=== PATIENT | female | born 1990 | race Caucasian/White ===

== ENCOUNTER 2017-01-16 05:30 | Day surgery (SDC) | payer OTHER ==
[~2017-01-16] VITALS: Ht 161.3 cm; Wt 67.8 kg
[2017-01-16 06:14] LABS: HEMATOCRIT 39.7 % (36.0-46.0); MCH 29.6 PG (29.0-34.0); MCHC 33.2 G/DL (30.0-36.0); MEAN PLAT.VOLUME 10.1 uM^3 (9.5-12.4); PLATELET COUNT 194 K/uL (156-360); RBC DIS.WIDTH-CV 12.1 % (11.8-14.6); RBC DIS.WIDTH-SD 39.7 % (39-53); RED BLOOD COUNT 4.46 M/uL (3.80-5.20); WHITE BLOOD COUNT 17.6 K/uL (4.1-10.2)
[2017-01-16 06:26] LABS: CHLORIDE 102 mEq/L (99-109); POTASSIUM 3.6 mEq/L (3.7-5.4); SODIUM 133 mEq/L (136-147)
[2017-01-16 06:28] LABS: GLUCOSE 118 mg/dL (70-99)
[2017-01-16 06:30] LABS: ANION GAP 11 MEQ/L (2-14); TOTAL BILIRUBIN 0.7 mg/dL (0.0-1.0)
[2017-01-16 06:32] LABS: ALKALINE PHOSPHATASE 43 IU/L (3-129); GFR ESTIMATE (CALCULATED) > 59 mL/min/
[2017-01-16 06:33] LABS: UREA NITROGEN (BUN) 12 mg/dL (9-23)
[2017-01-16 06:33] LABS: ADD MIUA? YES; BILIRUBIN NEGATIVE; BLOOD MODERATE; COLOR YELLOW ((YELLOW)); GLUCOSE (STRIP) NEGATIVE; KETONES NEGATIVE; LEUKOCYTES NEGATIVE; NITRITE NEGATIVE; PROTEIN (STRIP) 30; SPECIFIC GRAVITY 1.032 (1.000-1.030); UROBILINOGEN 0.2 MG/DL (0.2-1.0)
[2017-01-16 06:57] LABS: LIPASE 20 U/L (1.0-51.0); QUANTITATIVE HCG < 4.0 MIU/ML
[2017-01-16 07:26] LABS: BACTERIA 3+ /HPF; CASTS NONE SEEN /LPF; CRYSTALS NONE SEEN; EPITHELIAL CELLS RARE /HPF; MUCUS NONE SEEN /LPF; UCUL ADDED? YES; WHITE BLOOD CELLS 0-5 /HPF (0-5)
[2017-01-16] MEDS ORDERED: OXAYDO5 MG PO (11:15)
[2017-01-16 12:38] VITALS: BP 118/59
[2017-01-16 15:45] VITALS: BP 116/60
[2017-01-16 19:34] VITALS: BP 122/62
[2017-01-16 22:48] VITALS: BP 111/59
[2017-01-17 03:11] VITALS: BP 113/56
[2017-01-17 06:49] LABS: HEMATOCRIT 33.6 % (36.0-46.0); MCHC 34.2 G/DL (30.0-36.0); MCV 90.6 FL (83-99); MEAN PLAT.VOLUME 10.7 uM^3 (9.5-12.4); PLATELET COUNT 157 K/uL (156-360); RBC DIS.WIDTH-CV 12.4 % (11.8-14.6); RBC DIS.WIDTH-SD 40.9 % (39-53); RED BLOOD COUNT 3.71 M/uL (3.80-5.20); WHITE BLOOD COUNT 9.3 K/uL (4.1-10.2)
[2017-01-17 07:09] LABS: ANION GAP 6 MEQ/L (2-14); CHLORIDE 108 MEQ/L (99-109); GFR ESTIMATE (CALCULATED) > 59 mL/min/; GLUCOSE 113 mg/dL (70-99); POTASSIUM 4.1 MEQ/L (3.7-5.4); SAMPLE HEMOLYSIS CHECK 0; SAMPLE ICTERIC CHECK 0; SAMPLE LIPEMIA CHECK 0; SODIUM 140 MEQ/L (136-147); UREA NITROGEN (BUN) 5 mg/dL (9-23)
[2017-01-17 07:35] VITALS: BP 97/52
[2017-01-17 11:25] VITALS: BP 109/60
== END 2017-01-17 14:37 | disposition home or self-care (01) ==
LOC: EME 05:30 → SDC 09:49 → EME 09:49 → 2EASTP 11:07 → 2SOUTH 11:07 → ENRESERV 11:09 → 2EASTP 12:20
PROVIDERS: Surgery
PROC: 0DTJ4ZZ Resection of Appendix, Percutaneous Endoscopic Approach (ICD-10-PCS; principal; 2017-01-16)
DX: K35.80 Unspecified acute appendicitis (principal); K59.00 Constipation, unspecified; F17.210 Nicotine dependence, cigarettes, uncomplicated
CPT/HCPCS: 74177; 80048; 80053; 81003; 83690; 84702; 85027; 87086; 88304; 93005; 99281; 99285; G0378; J0330; J1100; J1170; J1650; J1885; J2405; J2710; J3010; J7030; J7050; J7120; S0074